=== PATIENT | female | born 1990 | race Caucasian/White ===

== ENCOUNTER 2019-07-25 14:22 | Emergency (ER) | payer SELFPAY ==
[~2019-07-25] VITALS: Ht 154.9 cm; Wt 86.1 kg
[2019-07-25 16:55] VITALS: BP 136/64
== END 2019-07-25 16:57 | disposition home or self-care (01) ==
LOC: ER 14:22
DX: K21.9 Gastro-esophageal reflux disease without esophagitis (principal); R06.02 Shortness of breath
CPT/HCPCS: 71045; 81025; 93005; 99283